=== PATIENT | female | born 1940 | race Caucasian/White ===

== ENCOUNTER 2017-08-30 07:47 | Emergency (ER) | payer MEDICARE, OTHER ==
[~2017-08-30] VITALS: Ht 162.6 cm; Wt 174.0 kg
[~2017-08-30 07:47] MED LIST: APIX5TAB3 PO; ARFO15VI3 NEB; BUDE0.256 NEB; CITA20TA11 PO; DILT120T PO; FLEC100T2 PO; FURO40TA4 PO; MAGN400C PO; MONT10TA21 PO; NITR0.4T51 SL; POTA10TA10 PO; SPIIN INH; [UNRECOGNIZED DRUG - OTHER]
[2017-08-30 08:22] LABS: BASOPHILS % (AUTO) 0 % (0-1); EOSINOPHILS # (AUTO) 0.2 X10'3 (0-0.9); EOSINOPHILS % (AUTO) 1.8 % (0-6); HEMATOCRIT 29.7 % (35.0-45.0); HEMOGLOBIN 10.2 g/dl (12.0-16.0); LYMPHOCYTES # (AUTO) 5.2 X10'3 (1.1-4.8); LYMPHOCYTES % (AUTO) 45.9 % (21-51); MEAN CORPUSCULAR HEMOGLOBIN 31.1 PG (27.0-31.0); MEAN CORPUSCULAR HGB CONC 34.2 % (33.0-36.5); MEAN PLATELET VOLUME 7.9 FL (7.4-10.4); MONOCYTES # (AUTO) 0.4 X10'3 (0-0.9); MONOCYTES % (AUTO) 3.8 % (2-12); NEUTROPHILS # (AUTO) 5.5 X10'3 (1.8-7.7); NEUTROPHILS % (AUTO) 48.5 % (42-75); PLATELET COUNT 252 X10'3 (140-440); RED BLOOD COUNT 3.27 X10'6 (4.20-5.60); RED CELL DISTRIBUTION WIDTH 15.8 % (11.5-14.5); WHITE BLOOD COUNT 11.4 X10'3 (4.5-11.0)
[2017-08-30 08:33] LABS: INR 0.9 INR; PARTIAL THROMBOPLASTIN TIME 26 SECONDS (22-32); PROTHROMBIN TIME 9.6 SECONDS (9.0-12.0)
[2017-08-30 08:37] LABS: ALANINE AMINOTRANSFERASE 17 U/L (12-78); ALBUMIN 3.1 G/DL (3.4-5.0); ALBUMIN/GLOBULIN RATIO 0.8 (1.1-1.5); ALKALINE PHOSPHATASE 74 IU/L (46-116); ANION GAP 3 (8-16); ASPARTATE AMINO TRANSFERASE 15 U/L (10-37); BILIRUBIN,TOTAL 0.3 MG/DL (0.1-1.0); BLOOD UREA NITROGEN 16 MG/DL (7-18); BUN/CREATININE RATIO 16.8 (6.6-38.0); CALCIUM 8.8 MG/DL (8.5-10.1); CHLORIDE 102 MMOL/L (99-107); CREATININE 0.95 MG/DL (0.40-0.90); GLUCOSE 106 MG/DL (70-104); POTASSIUM 4.3 MMOL/L (3.5-5.1); SODIUM 141 MMOL/L (135-145); TOTAL CARBON DIOXIDE 35.7 MMOL/L (24-32); TOTAL PROTEIN 6.9 G/DL (6.4-8.2); eGFR 57 ML/MIN
[2017-08-30] MEDS ORDERED: HYDROcodone/acetaminophen 5mg/325mg tablet PO ONE (08:50)
[2017-08-30] MEDS ORDERED: oxyCODONE/APAP 5-325mg tablet PO ONE (08:55)
[2017-08-30] MEDS ORDERED: OXYC-145 PO (09:09)
[2017-08-30 09:32] VITALS: BP 169/80
== END 2017-08-30 09:33 | disposition home or self-care (01) ==
LOC: ER 07:47
DX: S20.211A Contusion of right front wall of thorax, initial encounter (principal); I11.0 Hypertensive heart disease with heart failure; I50.9 Heart failure, unspecified; J44.9 Chronic obstructive pulmonary disease, unspecified; I48.91 Unspecified atrial fibrillation; Z88.0 Allergy status to penicillin; Z88.6 Allergy status to analgesic agent; Z95.0 Presence of cardiac pacemaker; W18.30XA Fall on same level, unspecified, initial encounter; Y93.89 Activity, other specified; Y92.89 Other specified places as the place of occurrence of the external cause; Y99.8 Other external cause status
CPT/HCPCS: 36415; 70450; 71250; 80053; 85025; 85610; 85730; 99285

== ENCOUNTER 2018-02-16 16:02 | Emergency (ER) | payer MEDICARE, OTHER ==
[~2018-02-16] VITALS: Ht 160 cm; Wt 90.9 kg
[~2018-02-16 16:02] MED LIST changes: +CITA-278 PO; -CITA20TA11 PO; +OXYC-145 PO
[2018-02-16 18:00] VITALS: BP_DIAS 83
[2018-02-16] MEDS ORDERED: acetaminophen 325mg tablet PO ONE ×2 (18:05→18:10)
[2018-02-16] MEDS ORDERED: traMADol 50MG tablet PO ONE (18:10)
[2018-02-16 19:00] VITALS: BP_SYST 123
== END 2018-02-16 19:22 | disposition home or self-care (01) ==
LOC: ER 16:02
DX: I89.8 Other specified noninfective disorders of lymphatic vessels and lymph nodes (principal); I50.9 Heart failure, unspecified; I48.91 Unspecified atrial fibrillation; I11.0 Hypertensive heart disease with heart failure; J44.9 Chronic obstructive pulmonary disease, unspecified; Z88.0 Allergy status to penicillin; Z79.899 Other long term (current) drug therapy; Z90.49 Acquired absence of other specified parts of digestive tract
CPT/HCPCS: 93926; 99284

== ENCOUNTER 2018-03-23 09:52 | Outpatient (CLI) | payer MEDICARE, OTHER ==
[2018-03-23] MEDS ORDERED: LIDOcaine/PRILOcaine 5gm cream TP ONE (11:30)
== END 2018-03-23 12:31 | disposition home or self-care (01) ==
LOC: WOUND CARE 09:52 → EDSTATUS 10:00 → WOUND CARE 12:31
PROVIDERS: ATTEND Surgery
DX: T81.89XD Other complications of procedures, not elsewhere classified, subsequent encounter (principal); L98.491 Non-pressure chronic ulcer of skin of other sites limited to breakdown of skin; J44.9 Chronic obstructive pulmonary disease, unspecified; I11.0 Hypertensive heart disease with heart failure; I50.9 Heart failure, unspecified; I48.91 Unspecified atrial fibrillation; Z79.899 Other long term (current) drug therapy; Z90.49 Acquired absence of other specified parts of digestive tract; Y83.8 Other surgical procedures as the cause of abnormal reaction of the patient, or of later complication, without mention of misadventure at the time of the procedure
CPT/HCPCS: 93926; 99214; A6021; A6206; A6212

== ENCOUNTER 2018-04-11 13:33 | Day surgery (SDC) | payer MEDICARE, OTHER ==
[~2018-04-11] VITALS: Ht 157.5 cm; Wt 96.7 kg
[2018-04-11] VITALS (7 sets, daily range): BP systolic 128–149; BP diastolic 64–93
[2018-04-11 14:38] LABS: BASOPHILS # (AUTO) 0.1 X10'3 (0-0.2); BASOPHILS % (AUTO) 1.1 % (0-1); EOSINOPHILS # (AUTO) 0.5 X10'3 (0-0.9); EOSINOPHILS % (AUTO) 4.3 % (0-6); LYMPHOCYTES # (AUTO) 5.7 X10'3 (1.1-4.8); MEAN CORPUSCULAR HEMOGLOBIN 30.8 PG (27.0-31.0); MEAN CORPUSCULAR HGB CONC 33.7 % (33.0-36.5); MEAN CORPUSCULAR VOLUME 91.4 FL (78-98); MEAN PLATELET VOLUME 8.8 FL (7.4-10.4); MONOCYTES # (AUTO) 0.6 X10'3 (0-0.9); MONOCYTES % (AUTO) 5.1 % (2-12); NEUTROPHILS # (AUTO) 4.9 X10'3 (1.8-7.7); NEUTROPHILS % (AUTO) 41.5 % (42-75); PRE OP HEMATOCRIT 30.1 % (35.0-45.0); PRE OP PLATELET COUNT 248 X10'3 (140-440); RED BLOOD COUNT 3.29 X10'6 (4.20-5.60); RED CELL DISTRIBUTION WIDTH 13.9 % (11.5-14.5)
[2018-04-11] MEDS ORDERED: famotidine 20mg tablet PO ONE (14:40)
[2018-04-11 14:43] LABS: PRE OP HEMOGLOBIN 10.1 g/dL (12.0-16.0)
[2018-04-11 14:49] LABS: ALBUMIN/GLOBULIN RATIO 0.8 (1.1-1.5); ALKALINE PHOSPHATASE 99 IU/L (46-116); BLOOD UREA NITROGEN 20 MG/DL (7-18); CALCIUM 8.8 MG/DL (8.5-10.1); CHLORIDE 103 MMOL/L (99-107); CREATININE 1.11 MG/DL (0.40-0.90); PRE OP ALT 15 U/L (30-65); PRE OP ANION GAP 6 (8-16); PRE OP AST 15 U/L (10-37); PRE OP BILIRUB, TOTAL 0.3 MG/DL (0.0-1.0); PRE OP GLUCOSE 106 MG/DL (70-104); PRE OP POTASSIUM 4.4 MMOL/L (3.4-5.1); PRE OP SODIUM 142 MMOL/L (135-145); TOTAL CARBON DIOXIDE 33.2 MMOL/L (24-32); TOTAL PROTEIN 6.7 G/DL (6.4-8.2); eGFR 48 ML/MIN
[2018-04-11] MEDS ORDERED: cefazolin/dext.iso 2gm/100 ML IV ONE (15:00)
[2018-04-11] MEDS ORDERED: midazolam 2 mg/2 ml injection ONE ×2 (16:07→16:26)
[2018-04-11] MEDS ORDERED: fentaNYL/PF 50MCG/1 ML 2ML syringe ONE ×2 (16:07→16:16)
[2018-04-11] MEDS ORDERED: ketamine 50mg/5ml syringe ONE (16:08)
[2018-04-11] MEDS ORDERED: LIDOcaine 1%/PF 5ML 10 MG/ML VIAL ONE (16:11)
[2018-04-11] MEDS ORDERED: LIDOcaine 1% 30ml preserv. free vial ONE (16:15)
[2018-04-11] MEDS ORDERED: propofol inj 20 ML IV ONE (16:16)
[2018-04-12] MEDS ORDERED: ringers solution, lacted 1,000 ML IV SCH (05:00)
[2018-04-12] MEDS ORDERED: cefazolin/dext.iso 2gm/100 ML IV ONE (14:15)
== END 2018-04-11 17:30 | disposition home or self-care (01) ==
LOC: PAS 13:33
PROVIDERS: ATTEND Surgery
DX: I89.8 Other specified noninfective disorders of lymphatic vessels and lymph nodes (principal); J43.9 Emphysema, unspecified; I50.9 Heart failure, unspecified; E66.9 Obesity, unspecified; Z68.39 Body mass index [BMI] 39.0-39.9, adult; Z79.899 Other long term (current) drug therapy; Z95.0 Presence of cardiac pacemaker; Z96.659 Presence of unspecified artificial knee joint; Z98.890 Other specified postprocedural states; Z72.89 Other problems related to lifestyle; Z88.0 Allergy status to penicillin; Z88.5 Allergy status to narcotic agent; Z80.0 Family history of malignant neoplasm of digestive organs; Z83.3 Family history of diabetes mellitus
CPT/HCPCS: 10140; 36415; 80053; 85025; 93005; J0690; J2001; J2250; J2704; J3010; J3490; J7120; A7000

== ENCOUNTER 2018-04-26 08:56 | Day surgery (SDC) | payer MEDICARE, OTHER ==
[~2018-04-26 08:56] MED LIST changes: -CITA-278 PO
== END 2018-04-26 10:57 | disposition home or self-care (01) ==
LOC: WOUND CARE 08:56
PROVIDERS: ATTEND Surgery
DX: T81.89XD Other complications of procedures, not elsewhere classified, subsequent encounter (principal); L98.491 Non-pressure chronic ulcer of skin of other sites limited to breakdown of skin; J44.9 Chronic obstructive pulmonary disease, unspecified; I11.0 Hypertensive heart disease with heart failure; I50.9 Heart failure, unspecified; I48.91 Unspecified atrial fibrillation; Z79.899 Other long term (current) drug therapy; Z90.49 Acquired absence of other specified parts of digestive tract; Y83.8 Other surgical procedures as the cause of abnormal reaction of the patient, or of later complication, without mention of misadventure at the time of the procedure
CPT/HCPCS: 97597

== ENCOUNTER 2018-05-03 08:48 | Day surgery (SDC) | payer MEDICARE, OTHER ==
[2018-05-03] MEDS ORDERED: LIDOcaine/PRILOcaine 5gm cream TP ONE (09:48)
== END 2018-05-03 10:52 | disposition home or self-care (01) ==
LOC: WOUND CARE 08:48
PROVIDERS: ATTEND Surgery
DX: T81.89XD Other complications of procedures, not elsewhere classified, subsequent encounter (principal); L98.491 Non-pressure chronic ulcer of skin of other sites limited to breakdown of skin; J44.9 Chronic obstructive pulmonary disease, unspecified; I11.0 Hypertensive heart disease with heart failure; I50.9 Heart failure, unspecified; I48.91 Unspecified atrial fibrillation; Z79.899 Other long term (current) drug therapy; Z90.49 Acquired absence of other specified parts of digestive tract; Y83.8 Other surgical procedures as the cause of abnormal reaction of the patient, or of later complication, without mention of misadventure at the time of the procedure
CPT/HCPCS: 97597

== ENCOUNTER 2018-05-10 08:20 | Day surgery (SDC) | payer MEDICARE, OTHER ==
[2018-05-10] MEDS ORDERED: LIDOcaine/PRILOcaine 5gm cream TP ONE (09:40)
== END 2018-05-10 11:10 | disposition home or self-care (01) ==
LOC: WOUND CARE 08:20
PROVIDERS: ATTEND Surgery
DX: T81.89XD Other complications of procedures, not elsewhere classified, subsequent encounter (principal); L98.491 Non-pressure chronic ulcer of skin of other sites limited to breakdown of skin; J44.9 Chronic obstructive pulmonary disease, unspecified; I11.0 Hypertensive heart disease with heart failure; I50.9 Heart failure, unspecified; I48.91 Unspecified atrial fibrillation; Z79.899 Other long term (current) drug therapy; Z90.49 Acquired absence of other specified parts of digestive tract; Y83.8 Other surgical procedures as the cause of abnormal reaction of the patient, or of later complication, without mention of misadventure at the time of the procedure
CPT/HCPCS: 97597; A4456

== ENCOUNTER 2018-05-17 08:32 | Day surgery (SDC) | payer MEDICARE, OTHER | END 2018-05-17 11:14 | disposition home or self-care (01) | LOC: WOUND CARE 08:32 | PROVIDERS: ATTEND Surgery | DX: T81.89XD Other complications of procedures, not elsewhere classified, subsequent encounter (principal); L98.491 Non-pressure chronic ulcer of skin of other sites limited to breakdown of skin; J44.9 Chronic obstructive pulmonary disease, unspecified; I11.0 Hypertensive heart disease with heart failure; I50.9 Heart failure, unspecified; I48.91 Unspecified atrial fibrillation; Z79.899 Other long term (current) drug therapy; Z90.49 Acquired absence of other specified parts of digestive tract; Y83.8 Other surgical procedures as the cause of abnormal reaction of the patient, or of later complication, without mention of misadventure at the time of the procedure | CPT/HCPCS: 97597 ==

== ENCOUNTER 2018-05-24 08:30 | Day surgery (SDC) | payer MEDICARE, OTHER | END 2018-05-24 10:43 | disposition home or self-care (01) | LOC: WOUND CARE 08:30 | PROVIDERS: ATTEND Surgery | DX: T81.89XD Other complications of procedures, not elsewhere classified, subsequent encounter (principal); L98.492 Non-pressure chronic ulcer of skin of other sites with fat layer exposed; J44.9 Chronic obstructive pulmonary disease, unspecified; I11.0 Hypertensive heart disease with heart failure; I50.9 Heart failure, unspecified; I48.91 Unspecified atrial fibrillation; G47.33 Obstructive sleep apnea (adult) (pediatric); F32.9 Major depressive disorder, single episode, unspecified; Z79.899 Other long term (current) drug therapy; Z90.49 Acquired absence of other specified parts of digestive tract; Z95.0 Presence of cardiac pacemaker; Y83.8 Other surgical procedures as the cause of abnormal reaction of the patient, or of later complication, without mention of misadventure at the time of the procedure | CPT/HCPCS: 97597; A4456; A6021 ==

== ENCOUNTER 2018-06-07 08:39 | Day surgery (SDC) | payer MEDICARE, OTHER ==
[2018-06-07] MEDS ORDERED: LIDOcaine/PRILOcaine 5gm cream TP ONE (09:49)
== END 2018-06-07 11:05 | disposition home or self-care (01) ==
LOC: WOUND CARE 08:39
PROVIDERS: ATTEND Surgery
DX: T81.89XD Other complications of procedures, not elsewhere classified, subsequent encounter (principal); L98.492 Non-pressure chronic ulcer of skin of other sites with fat layer exposed; J44.9 Chronic obstructive pulmonary disease, unspecified; I11.0 Hypertensive heart disease with heart failure; I50.9 Heart failure, unspecified; I48.91 Unspecified atrial fibrillation; G47.33 Obstructive sleep apnea (adult) (pediatric); F32.9 Major depressive disorder, single episode, unspecified; Z79.899 Other long term (current) drug therapy; Z90.49 Acquired absence of other specified parts of digestive tract; Z95.0 Presence of cardiac pacemaker; Y83.8 Other surgical procedures as the cause of abnormal reaction of the patient, or of later complication, without mention of misadventure at the time of the procedure
CPT/HCPCS: 17250; 97597; A6021; A6206; A6212

== ENCOUNTER 2018-06-28 08:45 | Outpatient (CLI) | payer MEDICARE, OTHER | END 2018-06-28 10:23 | disposition home or self-care (01) | LOC: WOUND CARE 08:45 → EDSTATUS 09:00 → WOUND CARE 10:23 | PROVIDERS: ATTEND Surgery | DX: T81.89XD Other complications of procedures, not elsewhere classified, subsequent encounter (principal); L98.492 Non-pressure chronic ulcer of skin of other sites with fat layer exposed; J44.9 Chronic obstructive pulmonary disease, unspecified; I11.0 Hypertensive heart disease with heart failure; I50.9 Heart failure, unspecified; I48.91 Unspecified atrial fibrillation; G47.33 Obstructive sleep apnea (adult) (pediatric); F32.9 Major depressive disorder, single episode, unspecified; Z79.899 Other long term (current) drug therapy; Z90.49 Acquired absence of other specified parts of digestive tract; Z95.0 Presence of cardiac pacemaker; Y83.8 Other surgical procedures as the cause of abnormal reaction of the patient, or of later complication, without mention of misadventure at the time of the procedure | CPT/HCPCS: G0463 ==

== ENCOUNTER 2021-05-28 17:11 | Inpatient (IN) | payer MEDICARE, OTHER ==
[~2021-05-28] VITALS: Ht 162.6 cm; Wt 100.0 kg
[~2021-05-28 17:11] MED LIST changes: +POTA-188 PO; -POTA10TA10 PO
[2021-05-28 17:52] LABS: HEMOGLOBIN 8.6 g/dl (12.0-16.0); NEUTROPHILS # (AUTO) 6.9 X10'3 (1.8-7.7)
[2021-05-28 17:54] LABS: BASOPHILS # (AUTO) 0.1 X10'3 (0-0.2); BASOPHILS % (AUTO) 0.4 % (0-1); EOSINOPHILS # (AUTO) 0.2 X10'3 (0-0.9); EOSINOPHILS % (AUTO) 0.9 % (0-6); HEMATOCRIT 25.9 % (35.0-45.0); LYMPHOCYTES # (AUTO) 9.3 X10'3 (1.1-4.8); LYMPHOCYTES % (AUTO) 53.9 % (21-51); MEAN CORPUSCULAR HEMOGLOBIN 31.4 PG (27.0-31.0); MEAN CORPUSCULAR HGB CONC 33.2 g/dL (33.0-36.5); MEAN CORPUSCULAR VOLUME 94.6 FL (78-98); MEAN PLATELET VOLUME 9.2 FL (7.4-10.4); MONOCYTES # (AUTO) 0.8 X10'3 (0-0.9); MONOCYTES % (AUTO) 4.6 % (2-12); NEUTROPHILS % (AUTO) 40.2 % (42-75); PLATELET COUNT 203 X10'3 (140-440); RED BLOOD COUNT 2.74 X10'6 (4.20-5.60); RED CELL DISTRIBUTION WIDTH 15.5 % (11.5-14.5); WHITE BLOOD COUNT 17.3 X10'3 (4.5-11.0)
[2021-05-28 18:01] LABS: D-DIMER 0.45 MG/L FEU (0-0.50)
[2021-05-28 18:09] LABS: ALANINE AMINOTRANSFERASE 20 U/L (12-78); ALBUMIN 3.2 G/DL (3.4-5.0); ALBUMIN/GLOBULIN RATIO 0.9 (1.1-1.5); ALKALINE PHOSPHATASE 57 IU/L (46-116); ANION GAP 9 (8-16); ASPARTATE AMINO TRANSFERASE 19 U/L (10-37); BILIRUBIN,TOTAL 0.3 MG/DL (0.1-1.0); BLOOD UREA NITROGEN 28 MG/DL (7-18); BUN/CREATININE RATIO 21.2 (6.6-38.0); CALCIUM 9.3 MG/DL (8.5-10.1); CHLORIDE 103 MMOL/L (99-107); CREATININE 1.32 MG/DL (0.40-0.90); GLUCOSE 119 MG/DL (70-104); POTASSIUM 4.3 MMOL/L (3.5-5.1); SODIUM 144 MMOL/L (135-145); TOTAL CARBON DIOXIDE 32.3 MMOL/L (24-32); TOTAL PROTEIN 6.6 G/DL (6.4-8.2); eGFR 39 ML/MIN
[2021-05-28] MEDS ORDERED: heparin 10,000 units/1 ML INJ IV PRN (18:30)
[2021-05-28] MEDS ORDERED: aspirin 325mg tablet PO ONE (18:30)
[2021-05-28] MEDS ORDERED: heparin 10,000 units/1 ML INJ IV ONE (18:30)
[2021-05-28 18:57] LABS: PARTIAL THROMBOPLASTIN TIME 23 SECONDS (22-32)
[2021-05-28 18:58] LABS: TOTAL CELLS COUNTED 100
[2021-05-28 19:00] LABS: PLATELET ESTIMATE NORMAL; SMUDGE CELLS 3+
[2021-05-28 19:01] LABS: ANISOCYTOSIS FEW; POLYCHROMASIA FEW
[2021-05-28] MEDS ORDERED: LORazepam 2 mg/ml vial IV ONE (19:15)
[2021-05-28] MEDS ORDERED: ondansetron/PF 4mg/2ml inj IV ONE (19:15)
[2021-05-28] MEDS: heparin 25,000 UNIT/250ml bag 250 ML IV SCH ×2 (19:32→19:40)
[2021-05-28] MEDS ORDERED: DILT120T3 PO (21:15)
[2021-05-28] MEDS ORDERED: ASPI-611 PO (21:15)
[2021-05-28] MEDS ORDERED: ROSU10TA28 PO (21:15)
[2021-05-28] MEDS ORDERED: TICA90TA PO (21:15)
[2021-05-28] MEDS ORDERED: OMEP-50 PO (21:15)
[2021-05-28] MEDS ORDERED: ALBU2.5V12 NEB (21:15)
[2021-05-28] MEDS ORDERED: SPIR50TA5 PO (21:15)
--- NOTE | 2021-05-28 21:40 | NUR ---
D/C'd heparin gtt per Dr. Gomez.
[2021-05-28] MEDS ORDERED: albuterol 2.5 MG/3 ML nebule NEB PRN (22:35)
[2021-05-28] MEDS: enoxaparin 100mg/ml syringe SUBCUT SCH (22:45)
[2021-05-29] MEDS ORDERED: albuterol 2.5 MG/3 ML nebule NEB SCH
[2021-05-29] MEDS ORDERED: ipratropium 0.5 MG/2.5ML nebule IH SCH (02:00)
[2021-05-29] MEDS ORDERED: ipratropium/albuterol 3ml nebule ONE (02:37)
[2021-05-29] MEDS: ipratropium/albuterol 3ml nebule NEB SCH ×4 (02:45→21:07)
[2021-05-29 03:08] LABS: EOSINOPHILS # (AUTO) 0.2 X10'3 (0-0.9); HEMOGLOBIN 8.5 g/dl (12.0-16.0); MONOCYTES # (AUTO) 0.8 X10'3 (0-0.9)
[2021-05-29 03:10] LABS: BASOPHILS # (AUTO) 0.2 X10'3 (0-0.2); BASOPHILS % (AUTO) 1.5 % (0-1); EOSINOPHILS % (AUTO) 1.2 % (0-6); MEAN CORPUSCULAR HGB CONC 32.6 g/dL (33.0-36.5); MEAN CORPUSCULAR VOLUME 95.1 FL (78-98); MEAN PLATELET VOLUME 9.1 FL (7.4-10.4); MONOCYTES % (AUTO) 4.9 % (2-12); NEUTROPHILS # (AUTO) 6.4 X10'3 (1.8-7.7); NEUTROPHILS % (AUTO) 38.4 % (42-75); PLATELET COUNT 209 X10'3 (140-440); RED BLOOD COUNT 2.74 X10'6 (4.20-5.60); RED CELL DISTRIBUTION WIDTH 15.8 % (11.5-14.5); WHITE BLOOD COUNT 16.6 X10'3 (4.5-11.0)
[2021-05-29 04:25] LABS: TOTAL CELLS COUNTED 100
[2021-05-29 04:26] LABS: PLATELET ESTIMATE NORMAL
[2021-05-29 04:28] LABS: POLYCHROMASIA FEW; SMUDGE CELLS 2+
[2021-05-29 04:29] LABS: ANISOCYTOSIS FEW; TEAR DROP CELLS FEW
[2021-05-29] MEDS: budesonide 0.5mg/2ml UD nebule IH SCH ×2 (08:00→20:00)
[2021-05-29] MEDS ORDERED: flecainide 50mg tablet PO SCH (08:00)
[2021-05-29] MEDS ORDERED: ticagrelor 90mg tablet PO SCH (08:00)
[2021-05-29] MEDS: furosemide 40mg tablet PO SCH ×2 (09:27→19:55)
[2021-05-29] MEDS: montelukast 10mg tablet PO SCH (09:27)
[2021-05-29] MEDS: aspirin 81mg, enteric-coated 1 TAB TABLET.DR PO SCH (09:28)
[2021-05-29] MEDS: pantoprazole 40mg Tablet.DR PO SCH (09:28)
[2021-05-29] MEDS: enoxaparin 100mg/ml syringe SUBCUT SCH ×2 (09:29→19:55)
[2021-05-29] MEDS: diltiazem CD 120mg capsule (once-daily) PO SCH (09:35)
[2021-05-29] MEDS: spironolactone 50 MG tablet PO SCH (10:41)
--- NOTE | 2021-05-29 10:44 | NUR ---
Pt complains of CP 01/17. Labored breathing. 3L N/C. ELKG requested.
[2021-05-29] MEDS ORDERED: clopidogrel 300mg tablet PO ONE (14:25)
[2021-05-29 17:45] VITALS: BP 137/72
--- NOTE | 2021-05-29 17:45 | NUR ---
Patient transferred to room. Telemetry placed, vital signs stable, bed is locked, lowered, side rails x2, call light with in reach. Bedside commode given. Water given. No signs of distress. C/O 5/10 midsternal pain. SOB with exertion on 3.5L NC
[2021-05-29 18:00] VITALS: BP 147/67
--- NOTE | 2021-05-29 18:20 | NUR ---
Patient in room PCU 3017. I have received report from MYCHAL Olson and had the opportunity to ask questions and assume patient care.
--- NOTE | 2021-05-29 18:36 | NUR ---
Problems reprioritized. Patient report given, questions answered & plan of care reviewed with Ada HORTA.
[2021-05-29] MEDS: atorvastatin 20mg tablet PO SCH (19:55)
[2021-05-29 19:57] VITALS: BP 122/51
[2021-05-29 22:00] VITALS: BP 134/49
[2021-05-30 02:00] VITALS: BP 132/56
[2021-05-30] MEDS: ipratropium/albuterol 3ml nebule NEB SCH ×4 (02:22→19:36)
--- NOTE | 2021-05-30 06:25 | NUR ---
Problems reprioritized. Patient report given, questions answered & plan of care reviewed with MYCHAL Wen.
--- NOTE | 2021-05-30 06:34 | NUR ---
Patient in room PCU 3017. I have received report from leora ocasio and had the opportunity to ask questions and assume patient care.
[2021-05-30 06:56] VITALS: BP 120/61
[2021-05-30 06:57] LABS: EOSINOPHILS # (AUTO) 0.3 X10'3 (0-0.9); LYMPHOCYTES # (AUTO) 7.5 X10'3 (1.1-4.8); MEAN CORPUSCULAR HGB CONC 33.5 g/dL (33.0-36.5); NEUTROPHILS # (AUTO) 5.3 X10'3 (1.8-7.7)
[2021-05-30 07:01] LABS: BASOPHILS % (AUTO) 0.3 % (0-1); HEMATOCRIT 24.4 % (35.0-45.0); HEMOGLOBIN 8.2 g/dl (12.0-16.0); LYMPHOCYTES % (AUTO) 54.4 % (21-51); MEAN CORPUSCULAR HEMOGLOBIN 31.6 PG (27.0-31.0); MEAN CORPUSCULAR VOLUME 94.4 FL (78-98); MEAN PLATELET VOLUME 9.4 FL (7.4-10.4); MONOCYTES # (AUTO) 0.6 X10'3 (0-0.9); MONOCYTES % (AUTO) 4.6 % (2-12); NEUTROPHILS % (AUTO) 38.7 % (42-75); PLATELET COUNT 182 X10'3 (140-440); RED BLOOD COUNT 2.59 X10'6 (4.20-5.60); RED CELL DISTRIBUTION WIDTH 15.8 % (11.5-14.5); WHITE BLOOD COUNT 13.7 X10'3 (4.5-11.0)
[2021-05-30 07:48] LABS: SMUDGE CELLS 1+; TOTAL CELLS COUNTED 100
[2021-05-30 07:49] LABS: ANISOCYTOSIS FEW; PLATELET ESTIMATE NORMAL; POLYCHROMASIA FEW
[2021-05-30] MEDS: budesonide 0.5mg/2ml UD nebule IH SCH ×2 (08:45→19:37)
[2021-05-30] MEDS: diltiazem CD 120mg capsule (once-daily) PO SCH (08:56)
[2021-05-30] MEDS: montelukast 10mg tablet PO SCH (08:56)
[2021-05-30] MEDS: aspirin 81mg, enteric-coated 1 TAB TABLET.DR PO SCH (08:56)
[2021-05-30] MEDS: spironolactone 50 MG tablet PO SCH (08:57)
[2021-05-30] MEDS: furosemide 40mg tablet PO SCH ×2 (08:57→20:39)
[2021-05-30] MEDS: clopidogrel 75mg tablet PO SCH (09:00)
[2021-05-30] MEDS: enoxaparin 100mg/ml syringe SUBCUT SCH ×2 (09:00→20:41)
[2021-05-30] MEDS: pantoprazole 40mg Tablet.DR PO SCH (09:16)
[2021-05-30 11:00] VITALS: BP 127/61
[2021-05-30 12:18] LABS: ANION GAP 8 (8-16); BLOOD UREA NITROGEN 31 MG/DL (7-18); BUN/CREATININE RATIO 21.1 (6.6-38.0); CALCIUM 8.7 MG/DL (8.5-10.1); CHLORIDE 102 MMOL/L (99-107); CREATININE 1.47 MG/DL (0.40-0.90); GLUCOSE 83 MG/DL (70-104); POTASSIUM 4.4 MMOL/L (3.5-5.1); SODIUM 143 MMOL/L (135-145); TOTAL CARBON DIOXIDE 33.5 MMOL/L (24-32); eGFR 34 ML/MIN
[2021-05-30] MEDS: acetaminophen 325mg tablet PO PRN ×2 (12:53→20:47)
[2021-05-30 15:00] VITALS: BP 147/80
[2021-05-30 18:00] VITALS: BP 129/55
--- NOTE | 2021-05-30 18:32 | NUR ---
Patient in room PCU 3017. I have received report from MYCHAL Wen and had the opportunity to ask questions and assume patient care.
--- NOTE | 2021-05-30 18:39 | NUR ---
Problems reprioritized. Patient report given, questions answered & plan of care reviewed with juliet ocasio.
[2021-05-30] MEDS: atorvastatin 20mg tablet PO SCH (20:40)
[2021-05-30] MEDS ORDERED: Melatonin 3mg tablet PO PRN (20:55)
[2021-05-30 22:00] VITALS: BP 120/36
[2021-05-31 02:00] VITALS: BP 120/45
[2021-05-31] MEDS: ipratropium/albuterol 3ml nebule NEB SCH ×2 (02:39→08:24)
[2021-05-31 06:00] VITALS: BP 127/49
--- NOTE | 2021-05-31 06:15 | NUR ---
Patient in room PCU 3017. I have received report from Carola Tomlinson and had the opportunity to ask questions and assume patient care.
--- NOTE | 2021-05-31 06:16 | NUR ---
Problems reprioritized. Patient report given, questions answered & plan of care reviewed with MYCHAL Lucio.
[2021-05-31 06:47] LABS: EOSINOPHILS # (AUTO) 0.2 X10'3 (0-0.9); HEMOGLOBIN 8.3 g/dl (12.0-16.0); MEAN CORPUSCULAR HGB CONC 33.5 g/dL (33.0-36.5)
[2021-05-31 06:50] LABS: BASOPHILS % (AUTO) 0.3 % (0-1); EOSINOPHILS % (AUTO) 1.8 % (0-6); HEMATOCRIT 24.6 % (35.0-45.0); LYMPHOCYTES # (AUTO) 7.7 X10'3 (1.1-4.8); LYMPHOCYTES % (AUTO) 62.5 % (21-51); MEAN CORPUSCULAR HEMOGLOBIN 31.5 PG (27.0-31.0); MEAN CORPUSCULAR VOLUME 93.9 FL (78-98); MEAN PLATELET VOLUME 9.3 FL (7.4-10.4); MONOCYTES # (AUTO) 0.3 X10'3 (0-0.9); MONOCYTES % (AUTO) 2.6 % (2-12); NEUTROPHILS % (AUTO) 32.8 % (42-75); PLATELET COUNT 184 X10'3 (140-440); RED BLOOD COUNT 2.62 X10'6 (4.20-5.60); RED CELL DISTRIBUTION WIDTH 15.8 % (11.5-14.5); WHITE BLOOD COUNT 12.3 X10'3 (4.5-11.0)
--- NOTE | 2021-05-31 06:52 | NUR ---
all partially met Addendum: 05/31/21 at 0652 by Naveed Navarro RN Amended: Links added.
[2021-05-31] MEDS ORDERED: budesonide 0.5mg/2ml UD nebule IH SCH (08:00)
[2021-05-31] MEDS: diltiazem CD 120mg capsule (once-daily) PO SCH (08:57)
[2021-05-31] MEDS: aspirin 81mg, enteric-coated 1 TAB TABLET.DR PO SCH (08:57)
[2021-05-31] MEDS: clopidogrel 75mg tablet PO SCH (08:57)
[2021-05-31] MEDS: montelukast 10mg tablet PO SCH (08:57)
[2021-05-31] MEDS: pantoprazole 40mg Tablet.DR PO SCH (08:57)
[2021-05-31] MEDS: furosemide 40mg tablet PO SCH (08:57)
[2021-05-31] MEDS: spironolactone 50 MG tablet PO SCH (08:57)
[2021-05-31] MEDS: enoxaparin 100mg/ml syringe SUBCUT SCH (08:58)
[2021-05-31] MEDS ORDERED: CLOP75TA34 PO (10:09)
--- NOTE | 2021-05-31 11:19 | NUR ---
pt is discharge, vitals not needed
--- NOTE | 2021-05-31 11:43 | NUR ---
pt is stable for discharge, iv is dc and canula intact, pt belongings were bagged and taken, no questions about dc,pt was wheeled down to lobby in a wheel chair and picked up by in private vehicle.
[2021-05-31 13:35] LABS: PLATELET ESTIMATE NORMAL; TOTAL CELLS COUNTED 100
[2021-05-31 13:37] LABS: ANISOCYTOSIS FEW; POLYCHROMASIA FEW; SMUDGE CELLS 2+
== END 2021-05-31 11:42 | disposition home or self-care (01) | DRG 291 ==
LOC: ER 17:11 → ED HOLD 22:24 → PCU 3S 05-29 17:51
PROVIDERS: ADMIT Internal Medicine; ATTEND Internal Medicine
DX: I11.0 Hypertensive heart disease with heart failure (principal); I50.33 Acute on chronic diastolic (congestive) heart failure; C91.10 Chronic lymphocytic leukemia of B-cell type not having achieved remission; J96.10 Chronic respiratory failure, unspecified whether with hypoxia or hypercapnia; I25.118 Atherosclerotic heart disease of native coronary artery with other forms of angina pectoris; E78.5 Hyperlipidemia, unspecified; I27.20 Pulmonary hypertension, unspecified; I48.0 Paroxysmal atrial fibrillation; J44.9 Chronic obstructive pulmonary disease, unspecified; K21.9 Gastro-esophageal reflux disease without esophagitis; Z20.822 Contact with and (suspected) exposure to COVID-19; Z80.0 Family history of malignant neoplasm of digestive organs; Z80.3 Family history of malignant neoplasm of breast; Z82.49 Family history of ischemic heart disease and other diseases of the circulatory system; Z83.3 Family history of diabetes mellitus; Z87.442 Personal history of urinary calculi; Z87.891 Personal history of nicotine dependence; Z95.5 Presence of coronary angioplasty implant and graft; Z99.81 Dependence on supplemental oxygen; Z88.0 Allergy status to penicillin; Z88.5 Allergy status to narcotic agent; Z90.49 Acquired absence of other specified parts of digestive tract; Z79.899 Other long term (current) drug therapy; Z79.82 Long term (current) use of aspirin; Z95.0 Presence of cardiac pacemaker
CPT/HCPCS: 36415; 71045; 71250; 80048; 80053; 83605; 83880; 84145; 84484; 85007; 85025; 85379; 85610; 85730; 87040; 87081; 87635; 93005; 94640; 94760; 99285; C9803; G0378; J1644; J1650; J2060; J2405; J7626

== ENCOUNTER 2021-11-16 09:54 | Day surgery (SDC) | payer MEDICARE, OTHER ==
[~2021-11-16] VITALS: Ht 162.6 cm; Wt 100.0 kg
[~2021-11-16 09:54] MED LIST changes: +ARFO15VI NEB; -ARFO15VI3 NEB; +CLOP75TA34 PO; -DILT120T PO; +DILT120T3 PO; +FERR-39 PO; -FLEC100T2 PO; +LOP12.5T PO; +MAGN250T11 PO; -MAGN400C PO; +MELA5TAB21 PO; -OXYC-145 PO; +PANT-47 PO; -POTA-188 PO; +POTA-205 PO; +ROSU10TA28 PO; -SPIIN INH; +SPIR50TA5 PO; +TIOT4MIS2 INH; -[UNRECOGNIZED DRUG - OTHER]
[2021-11-16 10:10] VITALS: BP 135/97
[2021-11-16] MEDS ORDERED: fentaNYL/PF 50MCG/1 ML 2ML syringe ONE (11:51)
[2021-11-16] MEDS ORDERED: MIDAZolam 1 MG/ML 5ML VIAL ONE (11:52)
[2021-11-16] MEDS ORDERED: LIDOcaine Viscous 15ml cup ONE (11:52)
[2021-11-16 12:15] VITALS: BP 127/68
[2021-11-16 12:25] VITALS: BP 131/70
[2021-11-16 12:35] VITALS: BP 132/60
[2021-11-16 12:45] VITALS: BP 131/63
== END 2021-11-16 12:50 | disposition home or self-care (01) ==
LOC: GI LAB 09:54
PROVIDERS: ATTEND Internal Medicine Gastroenterology
DX: R12 Heartburn (principal); K44.9 Diaphragmatic hernia without obstruction or gangrene; I10 Essential (primary) hypertension; I25.2 Old myocardial infarction; J44.9 Chronic obstructive pulmonary disease, unspecified; Z95.5 Presence of coronary angioplasty implant and graft; Z99.81 Dependence on supplemental oxygen; Z79.899 Other long term (current) drug therapy
CPT/HCPCS: 43235; G0500; J2250; J3010; J7030; Z7512; 99152; 99153; A4620